=== PATIENT | female | born 1955 | race Caucasian/White ===

== ENCOUNTER 2018-03-21 09:54 | Outpatient (CLI) | payer OTHER ==
--- NOTE | 2018-03-21 13:24 | MMO ---
BILATERAL SCREENING MAMMOGRAM: Date: 03/21/18 HISTORY: Screening. COMPARISON: Mammograms from 2013, 2012, and 2011. TECHNIQUE: Bilateral screening CC and MLO mammograms. This patient's mammogram was interpreted with the assistance of computer-aided detection. FINDINGS: The breasts are heterogeneously dense, which may obscure small masses. Benign calcifications right br east. IMPRESSION: BIRADS 2: Benign Finding(s) Continued annual mammographic screening is recommended. POS: YESICA
== END 2018-03-21 09:55 | disposition home or self-care (01) ==
LOC: SCSMAMMO 09:54
PROVIDERS: ATTEND Internal Medicine
DX: Z12.31 Encounter for screening mammogram for malignant neoplasm of breast (principal)
CPT/HCPCS: 77067